=== PATIENT | male | born 1960 | race Caucasian/White ===

== ENCOUNTER 2019-12-13 09:37 | Outpatient (CLI) | payer MEDICARE, OTHER, SELFPAY ==
[2019-12-13 10:18] LABS: Basophils # 0.1 10^3/uL (0.0-0.1); Basophils % 1.1 %; Eosinophils # 0.4 10^3/uL (0.0-0.8); Eosinophils % 3.3 %; Hematocrit 49.7 % (42.0-52.0); Hemoglobin 15.8 g/dL (11.7-16.6); Lymphocytes # 4.6 10^3/uL (0.8-4.8); Lymphocytes % 41.2 %; Mean Corpuscular HGB Conc 31.8 g/dL (30.0-36.0); Mean Corpuscular Hemoglobin 30.7 pg (28.0-34.0); Mean Corpuscular Volume 96.5 fL (80-94); Mean Platelet Volume 10.1 fL (7.4-10.4); Monocytes # 1.3 10^3/uL (0.2-0.9); Monocytes % 11.8 %; Neutrophils # 4.73 10^3/uL (1.8-7.7); Neutrophils % 42.4 %; Nucleated Red Blood Cells % 0 %; Platelet Count 347 10^3/cmm (130-400); Red Blood Count 5.15 10^6/uL (4.1-5.3); Red Cell Distribution Width 15.4 % (12.1-15.1); White Blood Count 11.1 10^3/uL (4.0-10.0)
[2019-12-13 10:46] LABS: Alanine Aminotransferase 45 U/L (0-41); Albumin Level 4.6 g/dL (3.5-5.2); Alkaline Phosphatase 72 IU/L (40-130); Anion Gap 14.7 (5-19); Aspartate Amino Transferase 32 U/L (0-40); Blood Urea Nitrogen 22 mg/dL (6-20); C Reactive Protein 12.8 mg/L (0.0-4.9); Calcium 9.6 mg/dL (8.5-10.5); Carbon Dioxide 28 mmol/L (22-29); Chloride 104 mmol/L (98-107); Glucose 102 mg/dL (65-115); NT Pro B Type Natriuretic Pept 45 pg/mL (0-125); Osmolality Calculated 298 mOsm/kg (285-295); Potassium 4.7 mmol/L (3.5-5.1); Sodium 142 mmol/L (136-145); Total Bilirubin 0.3 mg/dL (0.15-1.2); Total Protein 7.6 g/dL (6.6-8.7)
[2019-12-13 10:53] LABS: Creatine Phosphokinase 326 U/L (39-308)
[2019-12-13 11:08] LABS: Erythrocyte Sedimentation Rate 12 mm/hr (0-10)
[2019-12-14 11:58] LABS: Aldolase 5.9 U/L (< OR = 8.1)
[2019-12-14 12:28] LABS: Cyclic Citrullinated Peptide <16 UNITS
[2019-12-14 13:58] LABS: JO-1 Antibody <1.0 NEG AI (<1.0 NEG); SCL 70 <1.0 NEG AI (<1.0 NEG); SS A Ro Sjogrens Antibody <1.0 NEG AI (<1.0 NEG); SS-B/LA IGG <1.0 NEG AI (<1.0 NEG)
[2019-12-14 14:27] LABS: Anti-Nuclear Antibody Screen NEGATIVE (NEGATIVE)
[2019-12-14 17:27] LABS: Bermuda Class 0; Bermuda Grass (G2) Ige <0.10 kU/L; Cat Dander Class 0/1; Common Ragweed (Short) (W1) Ig 0.11 kU/L; Dog Dander (E5) Ige 0.25 kU/L; Dog Dander Class 0/1; Elm (T8) Ige <0.10 kU/L; Elm Class 0; English Plantain (W9) Ige <0.10 kU/L; English Plantain Class 0; Immunoglobulin E 1011 kU/L (<OR=114); Immunoglobulin E 968 kU/L (<OR=114); Johnson Grass (G10) Ige <0.10 kU/L; Johnson Grass Cl 0; June Grass Class 0; June Grass(Kentucky Blue) (G8) <0.10 kU/L; Lamb'S Quarters (Goose Foot) <0.10 kU/L; Lamb'S Quarters Class 0; Maple (Box Elder) (T1) Ige <0.10 kU/L; Maple Class 0; Meadow Fescue (G4) Ige <0.10 kU/L; Meadow Fescue Class 0; Oak (T7) Ige <0.10 kU/L; Oak Class 0; Orchard Grass (Cocksfoot) (G3) <0.10 kU/L; Perennial Rye Grass (G5) Ige <0.10 kU/L; Perennial Rye Grass Class 0; Ragweeed Class 0/1; Rough Marsh Elder (W16) Ige <0.10 kU/L; Rough Marsh Elder Class 0; Sweet Vernal Class 0/1; Sweet Vernal Grass (G1) Ige 0.15 kU/L; Timothy Grass (G6) Ige <0.10 kU/L; Timothy Grass Class 0
[2019-12-15 18:47] LABS: Alternaria Alternata (M6) Ige <0.10 kU/L; Alternaria Class 0; D. Farinae Class 0/1; Dermatophagoides Class 0/1; Dermatophagoides Farinae (D2) 0.19 kU/L; Dermatophagoides Pteronyssinus 0.22 kU/L; House Dust (Greer) (H1) Ige 0.13 kU/L; House Dust (Hollister- Stier) 0.13 kU/L; House Dust Class 0/1; Mucor Racemosus Class 0/1; Penicillium Class 0; Penicillium Notatum (M1) Ige <0.10 kU/L
[2019-12-16 18:38] LABS: Aspergillus Fumigatus, Igg Ab, 99.3 mg/L (<=102)
[2019-12-18 09:53] LABS: Smooth Muscle Ab Screen NEGATIVE (NEGATIVE)
== END 2019-12-13 09:38 | disposition home or self-care (01) ==
LOC: LAB 09:45
PROVIDERS: Visit Provider Internal Medicine Pulmonary Disease
DX: J84.9 Interstitial pulmonary disease, unspecified (principal); R06.02 Shortness of breath; T78.40XA Allergy, unspecified, initial encounter
CPT/HCPCS: 36415; 80053; 82085; 82550; 82785; 83516; 83880; 85025; 85651; 86003; 86038; 86140; 86235; 86431

== ENCOUNTER → 2019-12-29 09:36 | Outpatient (BNVA) | payer MEDICARE, OTHER, SELFPAY | PROVIDERS: PCP Urology; Visit Provider Internal Medicine Pulmonary Disease | DX: Z11.59 Encounter for screening for other viral diseases (principal); R06.02 Shortness of breath | CPT/HCPCS: 84403; 87635; G0103 ==

== ENCOUNTER 2020-01-03 07:50 | Outpatient (CLI) | payer MEDICARE, OTHER, SELFPAY ==
--- NOTE | 2020-01-03 08:07 | USCV_ITS ---
Miguel Angel George Age: 59 Gender: M : 1960 Exam Date: 01/03/2020 08:46 Ordering Phys: Aquilino Carrasquillo MD Technologist: Jono Whipple Exam Location: [facility] [place] Indication: sob BP: 140 / 83 HR: 70 Rhythm: Sinus Technical Quality: Adequate MEASUREMENTS (Male / Female) Normal Values 2D ECHO LV Diastolic Diameter PLAX 4.3 cm 4.2 - 5.9 / 3.9 - 5.3 cm LV Systolic Diameter PLAX 2.8 cm IVS Diastolic Thickness 1.1 cm 0.6 - 1.0 / 0.6 - 0.9 cm IVS Systolic Thickness 1.4 cm LVPW Diastolic Thickness 1.2 cm 0.6 - 1.0 / 0.6 - 0.9 cm LVPW Systolic Thickness 1.3 cm LVOT Diameter 2.1 cm LV Ejection Fraction 2D Teich 62.5 % LA Diameter 4.5 cm LA Width 3.6 cm LA Height 6.0 cm RA Width 3.2 cm RA Height 4.7 cm M-MODE LV Diastolic Diameter MM 5.6 cm 4.2 - 5.9 / 3.9 - 5.3 cm LV Systolic Diameter MM 3.6 cm LV Ejection Fraction MM Teich 64.8 % IVS Diastolic Thickness MM 0.8 cm 0.6 - 1.0 / 0.6 - 0.9 cm IVS Systolic Thickness MM 1.8 cm LVPW Diastolic Thickness MM 1.3 cm 0.6 - 1.0 / 0.6 - 0.9 cm LVPW Systolic Thickness MM 2.0 cm RV Diastolic Diameter MM 1.5 cm Aortic Annulus Diameter 4.0 cm LA Ao Ratio MM 1.4 MV E Point Septal Separation 0.7 cm DOPPLER AV Peak Velocity 191.0 cm/s LVOT Peak Velocity 109.0 cm/s AV Area Cont Eq vti 1.5 cm squared AV Area Cont Eq pk 1.9 cm squared MV Area PHT 3.7 cm squared Mitral E to A Ratio 1.0 MV E' Velocity 51.0 cm/s Mitral E to MV E' Ratio 12.0 Mitral E to LV E' Lateral Ratio 13.0 Mitral E to LV E' Septal Ratio 11.3 TR Peak Velocity 184.7 cm/s TR Peak Gradient 13.6 mmHg Right Atrial Pressure 3.0 mmHg Pulmonary Artery Systolic Pressu 16.6 mmHg FINDINGS Left Ventricle Normal left ventricular size and systolic function, EF 60% . Mild left ventricular hypertrophy. No regional wall motion abnormalities. Grade I/IV diastolic dysfunction (abnormal relaxation filling pattern), normal to mildly elevated filling pressures. Right Ventricle Normal right ventricular size and systolic function. Right Atrium The right atrium is normal in size. Left Atrium Mildly increased left atrial size. Mitral Valve Thickened mitral valve. Aortic Valve Moderate aortic valve calcification. The leaflets could not be identified well. Bicuspid aortic valve cannot be excluded Tricuspid Valve Trace tricuspid valve regurgitation. Pulmonic Valve Pulmonic valve not well visualized. Pericardium No pericardial effusion. Aorta Normal aortic annulus size. CONCLUSIONS Normal left ventricular size and systolic function, EF 60% . Mild left ventricular hypertrophy. No regional wall motion abnormalities. Grade I/IV diastolic dysfunction (abnormal relaxation filling pattern), normal to mildly elevated filling pressures. Mildly increased left atrial size. Thickened mitral valve. Possible bicuspid aortic valve with a moderate calcification, velocity at the aortic valve is 1.9 m/s Trace tricuspid valve regurgitation. There is no pericardial effusion. There are no intracardiac masses. Compared to the study from 08/06/2017, the velocity across the aortic valve appears to have increased. Dr Leora Camp MD FACC (Electronically Signed) Final Date: 03 January 2020 17:31 S
[2020-01-03 08:58] VITALS: BP 156/97
--- NOTE | 2020-01-03 15:58 | PFTS_ITS ---
Date of Study:01/03/20 Date of Dictation: MECHANICS: Forced vital capacity (FVC) is reduced. Forced expiratory volume in one second (FEV1) is reduced. FEV1/FVC is normal. FLOW VOLUME LOOP: Mild scooping. LUNG VOLUMES: Total lung capacity (TLC) is reduced. Residual volume (RV) is normal. DIFFUSING CAPACITY FOR CARBON MONOXIDE: Normal. INTERPRETATION: The prebronchodilator spirometry is consistent with moderate restriction. The postbronchodilator spirometry is consistent with mild restriction. The patient had a significant postbronchodilator response. The patient most likely has a component of obstructive and restrictive lung disease. The total lung capacity is mildly reduced. The residual volume is normal likely secondary to air trapping. Gas exchange (DLCO) is normal. MTDD
== END 2020-01-03 07:51 | disposition home or self-care (01) ==
LOC: RT 07:52
PROVIDERS: PCP Urology; Visit Provider Internal Medicine Pulmonary Disease
DX: R06.02 Shortness of breath (principal); I05.9 Rheumatic mitral valve disease, unspecified
CPT/HCPCS: 93306; 94060; 94618; 94726; 94729; J7611

== ENCOUNTER 2020-01-04 13:31 | Outpatient (CLI) | payer MEDICARE, OTHER, SELFPAY ==
--- NOTE | 2020-01-04 14:30 | CT_ITS ---
WS: [id number] CT CHEST TECHNIQUE: Noncontrast high-resolution CT of the chest with coronal and sagittal reformatted images. Inspiration, expiration, prone imaging was obtained CLINICAL INFORMATION: Exertional Shortness of breath COMPARISON: CTA chest 7 DLP: 298.[address] scans at [facility] use at least one of these dose optimization techniques: automat ed exposure control; mA and/or kV adjustment per patient size (includes targeted exams where dose is matched to clinical indication); or iterative reconstruction. FINDINGS: Moderate chronic emphysematous changes. No focal consolidation or pleural fluid. Subsegmental atelect asis in the right lower lobe. No evidence of interstitial fibrosis or subpleural honeycombing. Mild s cattered areas of air trapping on the expiratory imaging. Normal inspiratory and prone imaging. Somew hat shallow inspiration. Cardiomegaly. No mediastinal or hilar lymphadenopathy. No axillary lymphadenopathy. Prior splenectomy. Adrenal glan ds are normal. CT/CT chest wo con [id number] IMPRESSION: 1. No evidence of interstitial fibrosis or subpleural honeycombing. 2. Subsegmental atelectasis in the right lower lobe with a few patchy opacitie s similar to 2018. 3. Scattered areas of mild air trapping on the expiratory imaging. Somewhat sh allow inspiration. 4. Normal inspiratory and prone imaging. 5. Prior splenectomy partially visualized.
== END 2020-01-04 13:32 | disposition home or self-care (01) ==
LOC: CT 13:31
PROVIDERS: PCP Urology; Visit Provider Internal Medicine Pulmonary Disease
DX: R06.02 Shortness of breath (principal); J98.11 Atelectasis
CPT/HCPCS: 71250

== ENCOUNTER 2020-01-13 11:12 | Outpatient (CLI) | payer MEDICARE, OTHER, SELFPAY | END 2020-01-13 11:13 | disposition home or self-care (01) | LOC: LAB 11:16 | PROVIDERS: Visit Provider Internal Medicine Pulmonary Disease | DX: J45.909 Unspecified asthma, uncomplicated (principal); J98.4 Other disorders of lung | CPT/HCPCS: 36415 ==

== ENCOUNTER 2020-05-16 10:39 | Outpatient (CLI) | payer MEDICARE, OTHER, SELFPAY ==
--- NOTE | 2020-05-16 10:55 | XRR_ITS ---
PROCEDURE INFORMATION: Exam: XR Right Hip Exam date and time: 05/16/2020 11:04 AM Age: 59 years old Clinical indication: Hip pain; Right hip; Patient HX: Left hip surgery, back surgery; Additional info: Pain in right hip TECHNIQUE: Imaging protocol: XR Right hip. Views: 1 view hip with pelvis when performed. COMPARISON: No relevant prior studies available. FINDINGS: Bones/joints: No fracture or other acute abnormalities are seen. Chronic degenerative joint disease is present with superior joint space narrowing and sclerosis. Soft tissues: Unremarkable. XR/XR hip RT 2-3V wo/w pel* [id number] IMPRESSION: Chronic degenerative disease with sclerosis and joint space narrowing.
== END 2020-05-16 10:40 | disposition home or self-care (01) ==
LOC: RAD 10:49
PROVIDERS: Visit Provider Anesthesiology Pain Medicine
DX: M25.551 Pain in right hip (principal); M16.11 Unilateral primary osteoarthritis, right hip
CPT/HCPCS: 73502

== ENCOUNTER → 2020-10-10 08:14 | Outpatient (BNVA) | payer MEDICARE, OTHER, SELFPAY | PROVIDERS: PCP Family Medicine; Visit Provider Urology | DX: E29.1 Testicular hypofunction (principal); R79.89 Other specified abnormal findings of blood chemistry | CPT/HCPCS: 84403 ==

== ENCOUNTER → 2021-04-12 08:10 | Outpatient (BNVA) | payer MEDICARE, OTHER, SELFPAY | PROVIDERS: PCP Family Medicine; Visit Provider Urology | DX: R79.89 Other specified abnormal findings of blood chemistry (principal); E29.1 Testicular hypofunction | CPT/HCPCS: 81003; 84403; G0103 ==

== ENCOUNTER → 2021-09-28 08:12 | Outpatient (BNVA) | payer MEDICARE, OTHER, SELFPAY | PROVIDERS: PCP Family Medicine; Visit Provider Surgery | DX: K42.9 Umbilical hernia without obstruction or gangrene (principal); R19.7 Diarrhea, unspecified | CPT/HCPCS: 99203 ==

== ENCOUNTER → 2021-12-28 07:56 | Outpatient (BNVA) | payer MEDICARE, OTHER, SELFPAY | PROVIDERS: PCP Family Medicine; Visit Provider Otolaryngology | DX: Z71.1 Person with feared health complaint in whom no diagnosis is made (principal); Z87.891 Personal history of nicotine dependence | CPT/HCPCS: 99202; 99203 ==

== ENCOUNTER 2022-02-21 06:52 | Day surgery (SDC) | payer MEDICARE, OTHER, SELFPAY ==
[2022-02-20 17:39] VITALS: BMI 44.4
[2022-02-21] VITALS (11 sets, daily range): BP systolic 118–186; BP diastolic 67–116; PULSE 77–85; RESP 6–21; TEMP 36.1–36.8; O2SAT 89–97
--- NOTE | 2022-02-21 07:04 | PM.HP ---
Providers/Chief Complaint Primary Care Provider: Brandin Swain DO Chief Complaint: K42.9 History of Present Illness Miguel Angel George is a 61 year old male here for a laparoscopic repair of his umbilical hernia. Medications/Allergies Home Medications Medication Instructions Recorded Confirmed Last Taken Type levothyroxine 100 mcg capsule 100 mcg PO DAILY 11/30/19 02/20/22 02/20/22 History losartan 50 mg tablet 50 mg PO BID 12/13/19 02/20/22 02/20/22 History albuterol sulfate 90 mcg/actuation 1 puff inhalation QID PRN 11/30/20 02/20/22 Unknown Rx aerosol inhaler (ProAir HFA) shortness of breath or wheezing #8.5 grams amlodipine 5 mg tablet 5 mg PO DAILY 09/19/21 02/20/22 02/20/22 History fluticasone propionate 50 1 spray intranasal DAILY PRN 09/19/21 02/20/22 Unknown History mcg/actuation nasal allergies spray,suspension (Flonase Allergy Relief) gabapentin 800 mg tablet 800 mg PO TID 02/20/22 02/20/22 02/20/22 History Allergies Allergy/AdvReac Type Severity Reaction Status Date / Time No Known Allergies Allergy Verified 02/20/22 17:35 PFSH Acute PFSH: Medical History Asthma Chronic back pain Dyspnea GERD (gastroesophageal reflux disease) Hypertension Hypogonadism in male Hypothyroidism Low testosterone in male Renal cyst Umbilical hernia without obstruction and without gangrene Surgical History H/O lumbosacral spine surgery History of arthroplasty of left hip Hx of bilateral hip replacements Hx of colonoscopy Hx of splenectomy Family History Father , AT AGE 68 RENAL FAILURE CAD (coronary artery disease) Mother , AT AGE 72 LUNG CANCER Cancer Other Dementia Diabetes Social History Smoking and tobacco status: former smoker Second hand smoke exposure: Yes Smoking risk assessment/counseling performed?: No Alcohol intake: current Alcohol intake frequency: holidays/special occasions only Alcohol type: beer Desire information about alcohol rehabilitation?: No Counseling given: No Caregiver/support person: No Lives independently: Yes Household members: none Housing: House Marital status: Single service: Yes Current occupational status: disabled Pets and animals: Yes History of recent travel: No Current gender identity: Male Vitals/I&O/Wt Weight last 48 hrs Weight 292 lb Weight 292 lb A&P Assessment and plan (1) Umbilical hernia without obstruction and without gangrene: Plan Laparoscopic repair of umbilical hernia The risks and benefits were explained and documented. Attestations Medical Necessity Statement*: Home Coding Level of Care Code Acute X Ray Equipment Mechanic for Chg Fwd Diagnoses Umbilical hernia without obstruction and without gangrene K42.9
[2022-02-21] MEDS: sodium chloride 0.9% 1,000 ML 30 ML IV (07:36)
--- NOTE | 2022-02-21 07:59 | ANES.PREANE2 ---
Pre-Anesthetic Assessment Height/Weight: Height 1.73 m Weight 132.449 kg Temp Pulse Resp BP Pulse Ox O2 Del Method O2 Flow Rate 98.2 F 77 17 186/116 95 95 02/21/22 07:14 02/21/22 07:14 02/21/22 07:14 02/21/22 07:14 02/21/22 07:14 02/21/22 07:14 02/21/22 07:14 Preop Diagnosis: umbilical hernia Operation Date: 02/21/22 08:40 Proposed Procedures p 86867 lap umbilical hernia repair w/mesh 12050,K42.9(Not Applicable) - Romaine Hinton, DO Familial anesthetic complications: None Was Beta Erinn taken within 24 hours: N/A Was Clonidine taken within 24 hours: N/A Last intake: Intake Last Liquid Date 02/20/22 Last Liquid Time 17:00 Last Solid Date 02/20/22 Last Solid Time 17:00 Social No alcohol and No tobacco Exam alert, oriented x 3, clear to auscultation bilaterally and regular rate & rhythm Airway Mallampati: Class IV Dentition: full Comments: Comments: large neck and tongue with relatively small mouth opening, seen by ENT, noted to have elongated uvula Pulmonary Asthma (? allergic) and Sleep Apnea (patient denies ADIEL) restrictive lung disease CV/HEM Hypertension GI Gastroesophageal Reflux Disease Metabolic Morbid Obesity and Thyroid Disease Anesthetic Plan ASA status: 3 Anesthesia: General Risk of > 500 ml blood loss (7ml/kg in children): No Medications/Allergies Home Medications Medication Instructions Recorded Confirmed Last Taken Type levothyroxine 100 mcg capsule 100 mcg PO DAILY 11/30/19 02/21/22 02/21/22 04:00 History losartan 50 mg tablet 50 mg PO BID 12/13/19 02/21/22 02/20/22 14:00 History albuterol sulfate 90 mcg/actuation 1 puff inhalation QID PRN 11/30/20 02/20/22 Unknown Rx aerosol inhaler (ProAir HFA) shortness of breath or wheezing #8.5 grams amlodipine 5 mg tablet 5 mg PO DAILY 09/19/21 02/21/22 02/21/22 04:00 History fluticasone propionate 50 1 spray intranasal DAILY PRN 09/19/21 02/20/22 Unknown History mcg/actuation nasal allergies spray,suspension (Flonase Allergy Relief) gabapentin 800 mg tablet 800 mg PO TID 02/20/22 02/21/22 02/21/22 04:00 History Allergies Allergy/AdvReac Type Severity Reaction Status Date / Time No Known Allergies Allergy Verified 02/21/22 07:09 Current Medications Generic Name Dose Route Start Last Admin Trade Name Manny PRN Reason Stop Dose Admin Sodium Chloride 1,000 mls @ 30 mls/hr 02/21/22 07:00 02/21/22 07:36 Sodium Chloride 0.9% IV 02/22/22 06:59 30 mls/hr .Q24H DIONNE Administration PFSH Anesthesia Medical History Asthma Chronic back pain Dyspnea GERD (gastroesophageal reflux disease) Hypertension Hypogonadism in male Hypothyroidism Low testosterone in male Renal cyst Umbilical hernia without obstruction and without gangrene Surgical History H/O lumbosacral spine surgery History of arthroplasty of left hip Hx of bilateral hip replacements Hx of colonoscopy Hx of splenectomy Family History Father , AT AGE 68 RENAL FAILURE CAD (coronary artery disease) Mother , AT AGE 72 LUNG CANCER Cancer Other Dementia Diabetes Social History Smoking and tobacco status: former smoker Second hand smoke exposure: Yes Smoking risk assessment/counseling performed?: No Alcohol intake: current Alcohol intake frequency: holidays/special occasions only Alcohol type: beer Desire information about alcohol rehabilitation?: No Counseling given: No Caregiver/support person: No Lives independently: Yes Household members: none Housing: House Marital status: Single service: Yes Current occupational status: disabled Pets and animals: Yes History of recent travel: No Current gender identity: Male Data Anesthesia 02/21/22 07:33 Cardiac Studies: Echocardiogram Ultrasound 01/03/20
[2022-02-21 08:16] LABS: Anion Gap 13.1 (5-19); Blood Urea Nitrogen 14 mg/dL (8-23); Calcium 9.2 mg/dL (8.5-10.5); Carbon Dioxide 27 mmol/L (22-29); Chloride 104 mmol/L (98-107); Glomerular Filtration Rate 61.6 mL/min (90-130); Glucose 99 mg/dL (65-115); Osmolality Calculated 291 mOsm/kg (285-295); Potassium 4.1 mmol/L (3.5-5.1); Sodium 140 mmol/L (136-145)
[2022-02-21] MEDS: ceFAZolin 2,000 MG in sodium chloride 0.9% (plus) 50 ML 100 MG IV (08:40)
--- NOTE | 2022-02-21 09:41 | PM.OP ---
Operative Report Date of procedure: February 21, 2022 Pre-op diagnosis: Preop Diagnosis umbilical hernia Post-op diagnosis: same Procedure done: Laparoscopic repair of umbilical hernia with mesh Implants: 11 cm round mesh Specimens removed/disposition: Hernia sac Surgeon: Dr. Romaine Hinton DO Anesthesia: General Estimated blood loss (mL): 5 Complications: None apparent Brief History: This is a very pleasant 61-year-old gentleman who presented to my office with umbilical hernia. Laparoscopic repair umbilical hernia with mesh was indicated. The risks and benefits were explained and documented. Procedure: Patient was wheeled into the operative room and placed on the OR table in a supine position. Abdomen was inspected prepped and draped in usual sterile fashion. Time-out was performed and all present were in agreement. A 15 blade scalp was used to make a 5 millimeter incision left upper quadrant. A Veress needle was placed into the incision and intra-abdominal insufflation was brought to 15 millimeters of mercury. A 12 millimeter trocar was placed into the left lower quadrant. The energy but device was then used to cut out the hernia sac and lyse adhesions. An 11 cm ventral light mesh was placed into the abdomen and brought up through the umbilicus using an the Zac-Sheila. The mesh was then tacked in place in a double crown fashion. The skeleton of the mesh was removed via the left lower quadrant. The hernia sac was then removed from the abdomen via the left lower quadrant. The left lower quadrant port site was closed with an 0 Vicryl suture in a Zac-Sheila in a [id number]-[id number] fashion. Incisions were closed with 4 O Vicryl in a subcuticular interrupted fashion. Skin glue was applied. A dressing that included cotton balls and a Tegaderm was placed over the umbilicus. Patient tolerated the procedure well.
--- NOTE | 2022-02-21 09:54 | PC.NURSE ---
patient awake. oral airway removed
--- NOTE | 2022-02-21 10:10 | PC.NURSE ---
patient stated his baseline SaO2 is 87-89 due to having a lobectomy.
[2022-02-21] MEDS: HYDROcodone-acetaminophen 10-325 mg Tablet 1 TAB PO (10:57)
--- NOTE | 2022-02-21 16:54 | ANE.PACU2 ---
Inpatient post-anesthesia follow up: Airway intact: Yes Vital signs: Temperature 97 F Pulse Rate 85 Respiratory Rate 17 Blood Pressure 162/88 Pulse Oximetry 91 Oxygen Delivery Me thod Room Air Oxygen Flow Rate 2 Fraction of Inspir ed Oxygen Hydration adequate: Yes Nausea and vomiting: No Pain level: 1 Mental status: Baseline
== END 2022-02-21 11:25 | disposition home or self-care (01) ==
PROVIDERS: Anesthesiology; PCP Family Medicine; Visit Provider Surgery
PROC: 0WQF4ZZ Repair Abdominal Wall, Percutaneous Endoscopic Approach (ICD-10-PCS; CPT 49652; principal; 2022-02-21 08:30)
DX: K42.9 Umbilical hernia without obstruction or gangrene (principal); I10 Essential (primary) hypertension; K21.9 Gastro-esophageal reflux disease without esophagitis; E66.01 Morbid (severe) obesity due to excess calories; Z68.41 Body mass index [BMI] 40.0-44.9, adult; E03.9 Hypothyroidism, unspecified; Z87.891 Personal history of nicotine dependence
CPT/HCPCS: 49652; 80048; 88302; C1781; J0330; J0690; J1100; J2405; J2704; J3010; J3490; J7030

== ENCOUNTER 2022-03-06 06:40 | Outpatient (CLI) | payer MEDICARE, SELFPAY ==
--- NOTE | 2022-03-06 07:05 | CT_ITS ---
WS: [id number] CT CHEST WITH INTRAVENOUS CONTRAST HISTORY: Short of breath, history of Covid. TECHNIQUE: Contiguous 5 mm axial imaging performed on the thorax. Coronal and sagittal reformats are submitted. All CT scans at [facility] use at least one of these dose optimization techniques: automated exposure control; mA and/or kV adjustment per patient size (includes targeted exams where dose is matched to clinical indication); or iterative reconstruction. CONTRAST: Omnipaque 350; 95 mL IV. DLP: 724.30 mGy.cm COMPARISON: 01/04/2020 Lungs and central airway: Lung volumes are decreased due to poor inspiration. Moderate elevation of t he RIGHT hemidiaphragm. Interstitial thickening and crowding of the lung markings is probably due to the poor inspiration. Mild atelectasis at the RIGHT lung base due to the elevated diaphragm. No mass or nodules. Pleura: Normal. No pleural effusion. Heart and pericardium: Normal size heart with no pericardial effusion. Mediastinum and shea: There are a few small, benign appearing mediastinal and hilar lymph nodes. Larg est lymph node is 11 mm RIGHT interlobar. Vessels: Normal size pulmonary artery and thoracic aorta. Chest wall and lower neck: No soft tissue masses. Upper abdomen: High riding liver into the lower RIGHT thorax due to the elevated diaphragm and poor i nspiration. Gallbladder is contracted. No adjacent inflammation. No bile duct dilatation. Small hiata l hernia. Multilobulated, small spleen. May be related to prior infarct or trauma. No history of prio r splenectomy. 2.1 cm LEFT renal cyst. Osseous structures: No destructive process. CT/CT chest w con* [id number] IMPRESSION: 1. Low lung volumes and moderate elevation of the RIGHT hemidiaphragm. Similar to the prior study. 2. No pneumonia. 3. Mild atelectasis RIGHT lung base due to the elevated diaphragm. 4. No adenopathy. Largest lymph node is 11 mm in the RIGHT interlobar distribu tion. 5. Mildly contracted gallbladder probably due to nonfasting state. 6. LEFT renal cyst.
[2022-03-06] MEDS: iohexol 350 mg/mL 500 mL Btl (per mL) IV (07:22)
== END 2022-03-06 06:41 | disposition home or self-care (01) ==
LOC: RAD 06:44
PROVIDERS: PCP Family Medicine; Visit Provider Physician Assistant
DX: R91.8 Other nonspecific abnormal finding of lung field (principal); R06.02 Shortness of breath; Z86.16 Personal history of COVID-19; J98.11 Atelectasis; N28.1 Cyst of kidney, acquired
CPT/HCPCS: 71260; 99024; Q9967

== ENCOUNTER → 2022-04-02 13:47 | Outpatient (BNVA) | payer MEDICARE, SELFPAY | PROVIDERS: PCP Family Medicine; Visit Provider Internal Medicine Pulmonary Disease | DX: R06.02 Shortness of breath (principal); J98.4 Other disorders of lung; G47.33 Obstructive sleep apnea (adult) (pediatric); J45.40 Moderate persistent asthma, uncomplicated; Q23.1 Congenital insufficiency of aortic valve; R60.0 Localized edema; Z91.09 Other allergy status, other than to drugs and biological substances; J98.6 Disorders of diaphragm; J82.83 Eosinophilic asthma | CPT/HCPCS: 99204 ==

== ENCOUNTER → 2022-04-04 09:26 | Outpatient (BNVA) | payer MEDICARE, SELFPAY | PROVIDERS: PCP Family Medicine; Referring Provider Urology; Visit Provider Urology | DX: R79.89 Other specified abnormal findings of blood chemistry (principal) | CPT/HCPCS: 84403 ==

== ENCOUNTER → 2022-04-09 07:55 | Outpatient (BNVA) | payer MEDICARE, SELFPAY | PROVIDERS: PCP Family Medicine; Visit Provider Urology | DX: R79.89 Other specified abnormal findings of blood chemistry (principal); Z12.5 Encounter for screening for malignant neoplasm of prostate; F11.90 Opioid use, unspecified, uncomplicated | CPT/HCPCS: 99213 ==

== ENCOUNTER 2022-04-18 10:48 | Outpatient (CLI) | payer MEDICARE, SELFPAY ==
--- NOTE | 2022-04-18 11:15 | FL_ITS ---
WS: [id number] Exam: FL sniff test [id number] Date/Time of Exam: 04/18/2022 11:40 AM Reason For Exam: Shortness of breath. Sniff test was performed using fluoroscopic visualization. Sniff test shows normal bilateral diaphragmatic motion. There was no sign of the diaphragmatic paraly sis or other significant finding. FL/FL sniff test [id number] IMPRESSION: 1. Normal diaphragmatic motion during inspiration, expiration and sniff test.
== END 2022-04-18 10:49 | disposition home or self-care (01) ==
LOC: RAD 10:55
PROVIDERS: PCP Family Medicine; Visit Provider Internal Medicine Pulmonary Disease
DX: G47.33 Obstructive sleep apnea (adult) (pediatric) (principal); J98.4 Other disorders of lung; R06.02 Shortness of breath
CPT/HCPCS: 76000

== ENCOUNTER → 2022-07-05 09:14 | Outpatient (BNVA) | payer MEDICARE, SELFPAY | PROVIDERS: PCP Family Medicine; Visit Provider Urology | DX: R79.89 Other specified abnormal findings of blood chemistry (principal); Z12.5 Encounter for screening for malignant neoplasm of prostate | CPT/HCPCS: 81003; 84403 ==

== ENCOUNTER → 2022-07-08 14:51 | Outpatient (BNVA) | payer MEDICARE, SELFPAY | PROVIDERS: PCP Family Medicine; Visit Provider Urology | DX: R79.89 Other specified abnormal findings of blood chemistry (principal); Z12.5 Encounter for screening for malignant neoplasm of prostate; E29.1 Testicular hypofunction; F11.90 Opioid use, unspecified, uncomplicated | CPT/HCPCS: 81003; 99213 ==

== ENCOUNTER 2022-09-26 11:57 | Outpatient (CLI) | payer MEDICARE, SELFPAY ==
--- NOTE | 2022-09-26 12:06 | USCV_ITS ---
Miguel Angel George Age: 62 Gender: M : 1960 Exam Date: 09/26/2022 12:32 Ordering Phys: Traci Orellana Technologist: PEDRO [place] [facility] [place]ication: LIGHT HEADEDNESS Risk Factors: Previous Vascular Surgery: Right Brachial BP: / Left Brachial BP: / Right Left Velocity (cm/s) Spectral Plaque Velocity (cm/s) Spectral Plaque Syst/Diast Broadening Syst/Diast Broadening 113.60/29.80 Prox CCA 121.20/ 24.90 99.20/ 20.90 Mid CCA 101.20/ 22.30 92.60/ 23.20 Distal CCA 84.60 / 23.10 68.80/ 21.30 Prox ICA 78.30 / 28.70 79.80/ 19.20 Mid ICA 89.10 / 19.20 66.30/ 22.10 Distal ICA 71.70 / 22.50 101.20 ECA 128.40 0.70 ICA/CCA 0.74 Antegrade Vertebral Antegrade 44.20/ 11.50 cm/s 36.40/ 10.80 cm/s Tri Subclavian Tri 110.5 182.5 0 0 FINDINGS Comparison: none available. No significant elevation of systolic or diastolic velocities. Mixture of calcified and noncalcified plaque in the bifurcations. Antegrade vertebral arteries. CONCLUSIONS Bilateral ICA stenosis less than 50%. Bilateral carotid bifurcation atherosclerotic plaque. Dr. Stephanie Ahmadi DO (Electronically Signed) Final Date: 26 September 2022 13:36 S
== END 2022-09-26 11:58 | disposition home or self-care (01) ==
PROVIDERS: PCP Family Medicine; Visit Provider Physician Assistant
DX: R42 Dizziness and giddiness (principal); I65.23 Occlusion and stenosis of bilateral carotid arteries
CPT/HCPCS: 93880

== ENCOUNTER 2022-12-19 11:53 | Emergency (ER) | payer MEDICARE, SELFPAY ==
[2022-12-19 11:57] VITALS: BP 165/93; PULSE 86; RESP 16; TEMP 36.7; O2SAT 94; BMI 44.6
--- NOTE | 2022-12-19 12:09 | W.ED.SKABFB ---
HPI - Skin/Abscess/Foreign Bdy General: Chief complaint: Skin/Abscess/Foreign Body Stated complaint: Orellana sent for skin infection Time Seen by Provider: 12/19/22 11:59 Source: patient Mode of arrival: ambulatory History of Present Illness: 62-year-old male presents emergency room sent by midlevel seen him in the clinic he was seen earlier this week and had what was thought to be a bug bite on his right flank and started on doxycycline its worsened since then. No fever. No vomiting no diarrhea. Onset (ago): minute(s) Severity: moderate Relieving factors: none Exacerbating factors: none Context: none Associated symptoms: Deny no associated symptoms, arthralgias, chills, cough, fever(s), itching, myalgias, nausea, rigidity, short of breath, vomiting or other Review of Systems Const: Denies: fever(s) or chills Card: Denies: chest pain Resp: Denies: dyspnea GI: Denies: nausea or vomiting : Denies: dysuria, urinary frequency or urinary urgency Musc: Denies: neck pain or back pain Skin/Breast: Denies: rash PFSH ED PFSH: Medical History Asthma Chronic back pain Dyspnea GERD (gastroesophageal reflux disease) History of umbilical hernia Hypertension Hypogonadism in male Hypothyroidism Low testosterone in male Renal cyst Umbilical hernia without obstruction and without gangrene Surgical History H/O lumbosacral spine surgery History of arthroplasty of left hip Hx of bilateral hip replacements Hx of colonoscopy Hx of splenectomy Family History Father , AT AGE 68 RENAL FAILURE CAD (coronary artery disease) Mother , AT AGE 72 LUNG CANCER Cancer Other Dementia Diabetes Social History Smoking and tobacco/nicotine status: never used tobacco/nicotine Second hand smoke exposure: Yes Alcohol intake: current Alcohol intake frequency: holidays/special occasions only Alcohol type: beer Substance/Drug Use: never Caregiver/support person: No Lives independently: Yes Household members: none Housing: House Marital status: Single service: Yes Current occupational status: disabled Pets and animals: Yes Do you think of yourself as: Straight/Heterosexual Current gender identity: Male Physical Exam Const: GENERAL APPEARANCE: cooperative and comfortable ORIENTATION/CONSCIOUSNESS: Yes awake, Yes oriented to person, Yes oriented to place and Yes oriented to time HENMT: COMMON NORMALS: normocephalic, atraumatic and hearing grossly normal bilaterally HEAD & SCALP: normocephalic and atraumatic Resp: COMMON NORMALS: normal respiratory effort, No retractions, No use of accessory muscles and clear to auscultation bilaterally AUSCULTATION: clear to auscultation bilaterally Cardio: COMMON NORMALS: regular rate, regular rhythm and No murmurs present (Cardio) RATE: regular rate RHYTHM: regular rhythm GI: COMMON NORMALS: Soft to palpation and No hepatosplenomegaly present AUSCULTATION: Yes normoactive bowel sounds PALPATION: Yes Soft to palpation, No Tenderness to palpation present (GI), No Guarding due to palpation present (GI) and Yes No hepatosplenomegaly present Extremity: COMMON NORMALS: normal to inspection, capillary refill normal, no clubbing, cyanosis or edema, no calf tenderness and no pedal edema Neuro: SENSORIUM/ORIENTATION: Yes oriented to person, Yes oriented to place and Yes oriented to time Skin: NARRATIVE SKIN EXAM: Redness erythema with central open wounds 2 small parallel areas of both knees you have elected Hyphed live no active bleeding skin is thickened and inflamed there is no subcutaneous fluid collections. No drainage with palpation around the open wounds. Course Vital Signs: Vital signs: Vital Signs Temperature 98.0 F 12/19/22 11:57 Pulse Rate 86 12/19/22 11:57 Respiratory Rate 16 12/19/22 11:57 Blood Pressure 165/93 12/19/22 11:57 Pulse Oximetry 94 12/19/22 11:57 Oxygen Delivery Me thod Room Air 12/19/22 11:57 MDM - Skin/Abscess/Foreign Bdy Medicial Decision Making Cellulitis failing outpatient antibiotics. Will admit with IV vancomycin discussed with hospitalist orders written. Medical Records I reviewed the patient's medical records. Lab Data I reviewed the patient's lab results. 12/19/22 13:00 12/19/22 13:00 Laboratory Results WBC 20.80 10^3/uL (3.29-11.43) H 12/19/22 13:00 RBC 5.15 10^6/uL (3.85-5.65) 12/19/22 13:00 Hgb 16.10 g/dL (11.27-16.99) 12/19/22 13:00 Hct 48.2 % (37-53) 12/19/22 13:00 MCV 93.6 fl (82-101) 12/19/22 13:00 MCH 31.3 pg (27-33) 12/19/22 13:00 MCHC 33.4 g/dL (30-55) 12/19/22 13:00 RDW 14.5 % (12.1-15.1) 12/19/22 13:00 Plt Count 321 10^3/cmm (157-399) 12/19/22 13:00 MPV 10.1 fL (7.4-10.4) 12/19/22 13:00 Neut % (Auto) 71.2 % 12/19/22 13:00 Lymph % (Auto) 12.4 % 12/19/22 13:00 [place] % (Auto) 10.4 % 12/19/22 13:00 Eos % (Auto) 5.1 % 12/19/22 13:00 Baso % (Auto) 0.3 % 12/19/22 13:00 Neut # (Auto) 14.82 10^3/uL (1.8-7.7) H 12/19/22 13:00 Lymph # (Auto) 2.6 10^3/uL (0.8-4.8) 12/19/22 13:00 [place] # (Auto) 2.2 10^3/uL (0.2-0.9) H 12/19/22 13:00 Eos # (Auto) 1.1 10^3/uL (0.0-0.8) H 12/19/22 13:00 Baso # (Auto) 0.1 10^3/uL (0.0-0.1) 12/19/22 13:00 Nucleated RBC % (auto) 0.1 % 12/19/22 13:00 Nucleated RBCs # 0.0 /100WBC 12/19/22 13:00 Sodium 134 mmol/L (136-145) L 12/19/22 13:00 Potassium 3.3 mmol/L (3.5-5.1) L 12/19/22 13:00 Chloride 94 mmol/L (98-107) L 12/19/22 13:00 Carbon Dioxide 30 mmol/L (22-29) H 12/19/22 13:00 Anion Gap 13.3 (5-19) 12/19/22 13:00 BUN 17 mg/dL (8-23) 12/19/22 13:00 Creatinine 1.3 mg/dL (0.7-1.2) H 12/19/22 13:00 GFR Calculation 55.9 mL/min (90-130) L 12/19/22 13:00 Glucose 107 mg/dL (65-115) 12/19/22 13:00 Calculated Osmolality 280 mOsm/kg (285-295) L 12/19/22 13:00 Calcium 9.6 mg/dL (8.5-10.5) 12/19/22 13:00 Total Bilirubin 1.1 mg/dL (0.15-1.2) 12/19/22 13:00 AST 35 U/L (0-40) 12/19/22 13:00 ALT 53 U/L (0-41) H 12/19/22 13:00 Alkaline Phosphatase 105 U/L (40-130) 12/19/22 13:00 Total Protein 7.9 g/dL (6.6-8.7) 12/19/22 13:00 Albumin 4.3 g/dL (3.5-5.2) 12/19/22 13:00 Globulin 3.6 g/dL (1.3-4.6) 12/19/22 13:00 All radiology interpretation(s) finalized by discharge Discharge Plan Discharge Patient Disposition: Placed in Observation Clinical Impression: Cellulitis Condition: Stable Prescriptions: No Action levothyroxine 100 mcg capsule 100 mcg PO DAILY losartan 50 mg tablet 50 mg PO BID montelukast 10 mg tablet 10 mg PO DAILY amlodipine 5 mg tablet 5 mg PO DAILY fluticasone propionate [Flonase Allergy Relief] 50 mcg/actuation spray,suspension 1 spray intranasal DAILY PRN (Reason: allergies) Rx Instructions: administer into each nostril testosterone cypionate [Depo-Testosterone] 200 mg/mL oil 200 mg IM .Every other week Qty: 10 5RF gabapentin 800 mg Tablet 800 mg PO TID docusate sodium [DOK] 100 mg capsule 100 mg PO BID Qty: 20 0RF atorvastatin 10 mg tablet 10 mg PO QPM doxycycline hyclate 100 mg tablet 100 mg PO BID hydrochlorothiazide 12.5 mg tablet 12.5 mg PO DAILY Referrals: Brandin Swain DO [Primary Care Provider] - Coding Level of Care Code ED [employer] for Alexi Teixeira
--- NOTE | 2022-12-19 12:26 | US_ITS ---
WS: [id number] ULTRASOUND SOFT TISSUES RIGHT lateral abdominal wall. HISTORY: r side abd wall abscess COMPARISON: None available. TECHNIQUE: 2-D and color Doppler imaging is submitted. Ultrasound performed over the area of clinical concern. There is no underlying abscess or fluid colle ction. There is a very small amount of edema within the soft tissue. IMPRESSION: Mild soft tissue edema but no abscess.
[2022-12-19 13:20] LABS: Basophils # 0.1 10^3/uL (0.0-0.1); Basophils % 0.3 %; Eosinophils # 1.1 10^3/uL (0.0-0.8); Eosinophils % 5.1 %; Hematocrit 48.2 % (37-53); Lymphocytes # 2.6 10^3/uL (0.8-4.8); Lymphocytes % 12.4 %; Mean Corpuscular HGB Conc 33.4 g/dL (30-55); Mean Corpuscular Hemoglobin 31.3 pg (27-33); Mean Corpuscular Volume 93.6 fl (82-101); Mean Platelet Volume 10.1 fL (7.4-10.4); Monocytes # 2.2 10^3/uL (0.2-0.9); Monocytes % 10.4 %; Neutrophils # 14.82 10^3/uL (1.8-7.7); Neutrophils % 71.2 %; Nucleated Red Blood Cells % 0.1 %; Platelet Count 321 10^3/cmm (157-399); Red Blood Count 5.15 10^6/uL (3.85-5.65); Red Cell Distribution Width 14.5 % (12.1-15.1)
[2022-12-19 13:47] LABS: Alanine Aminotransferase 53 U/L (0-41); Albumin Level 4.3 g/dL (3.5-5.2); Alkaline Phosphatase 105 U/L (40-130); Anion Gap 13.3 (5-19); Aspartate Amino Transferase 35 U/L (0-40); Blood Urea Nitrogen 17 mg/dL (8-23); Calcium 9.6 mg/dL (8.5-10.5); Carbon Dioxide 30 mmol/L (22-29); Chloride 94 mmol/L (98-107); Globulin 3.6 g/dL (1.3-4.6); Glomerular Filtration Rate 55.9 mL/min (90-130); Glucose 107 mg/dL (65-115); Osmolality Calculated 280 mOsm/kg (285-295); Potassium 3.3 mmol/L (3.5-5.1); Sodium 134 mmol/L (136-145); Total Bilirubin 1.1 mg/dL (0.15-1.2); Total Protein 7.9 g/dL (6.6-8.7)
[2022-12-19] MEDS: vancomycin 1,000 MG in sodium chloride 0.9% 250 ML 250 MG IV (14:17)
--- NOTE | 2022-12-19 15:49 | P.HP_ITS ---
Providers/Chief Complaint Primary Care Provider: Brandin Swain DO Chief Complaint: Orellana sent for skin infection History of Present Illness Miguel Angel George is a 62 year old male with a past medical history of hypertension, history of asplenia, who presents [facility] as he developed right roxy area of erythema, swelling, with drainage along right flank. He tells me that his symptoms started on Friday, area of erythema, swelling, and area actively draining, he was placed on antibiotics by his primary care provider, doxycycline, and followed up the next day but continued to have worsening erythema, swelling, drainage so was told to come to the emergency room. No fevers, chills, he does report asplenia, denies any animal bites, no cat bites, no dog bites, he is not sure if maybe a spider bit him, a few days ago but it is possible, Medications/Allergies Home Medications Medication Instructions Recorded Confirmed Last Taken Type levothyroxine 100 mcg capsule 100 mcg PO DAILY 11/30/19 12/19/22 12/19/22 History losartan 50 mg tablet 50 mg PO BID 12/13/19 12/19/22 12/19/22 History amlodipine 5 mg tablet 5 mg PO DAILY 09/19/21 12/19/22 12/19/22 History fluticasone propionate 50 1 spray intranasal DAILY PRN 09/19/21 12/19/22 Unknown History mcg/actuation nasal allergies spray,suspension (Flonase Allergy Relief) gabapentin 800 mg tablet 800 mg PO TID 02/20/22 12/19/22 12/19/22 History docusate sodium 100 mg capsule 100 mg PO BID #20 caps 02/21/22 12/19/22 12/19/22 Rx (DOK) montelukast 10 mg tablet 10 mg PO DAILY 04/09/22 12/19/22 12/19/22 History testosterone cypionate 200 mg/mL 200 mg IM .Every other week #10 mL 07/08/22 12/19/22 Unknown Rx intramuscular oil (Depo-Testosterone) atorvastatin 10 mg tablet 10 mg PO QPM 12/19/22 12/19/22 12/18/22 History doxycycline hyclate 100 mg tablet 100 mg PO BID 12/19/22 12/19/22 12/19/22 History hydrochlorothiazide 12.5 mg tablet 12.5 mg PO DAILY 12/19/22 12/19/22 12/19/22 History linezolid 600 mg tablet 600 mg PO BID 10 days #20 tabs 12/19/22 Unknown Rx Allergies Allergy/AdvReac Type Severity Reaction Status Date / Time No Known Allergies Allergy Verified 12/19/22 13:38 PFSH Acute PFSH: Medical History Asthma Chronic back pain Dyspnea GERD (gastroesophageal reflux disease) History of umbilical hernia Hypertension Hypogonadism in male Hypothyroidism Low testosterone in male Renal cyst Umbilical hernia without obstruction and without gangrene Surgical History H/O lumbosacral spine surgery History of arthroplasty of left hip Hx of bilateral hip replacements Hx of colonoscopy Hx of splenectomy Family History Father , AT AGE 68 RENAL FAILURE CAD (coronary artery disease) Mother , AT AGE 72 LUNG CANCER Cancer Other Dementia Diabetes Social History Smoking and tobacco/nicotine status: never used tobacco/nicotine Second hand smoke exposure: Yes Alcohol intake: current Alcohol intake frequency: holidays/special occasions only Alcohol type: beer Substance/Drug Use: never Caregiver/support person: No Lives independently: Yes Household members: none Housing: House Marital status: Single service: Yes Current occupational status: disabled Pets and animals: Yes Do you think of yourself as: Straight/Heterosexual Current gender identity: Male Vitals/I&O/Wt Last Vital Signs Temp 98.0 F 12/19/22 11:57 Pulse 86 12/19/22 11:57 Resp 16 12/19/22 11:57 BP 165/93 12/19/22 11:57 Pulse Ox 94 12/19/22 11:57 O2 Del Method Room Air 12/19/22 11:57 Weight last 48 hrs Weight 133.356 kg Physical Exam Const: COMMON NORMALS: no acute distress and patient oriented x3 Resp: COMMON NORMALS: normal respiratory effort, No retractions, No use of accessory muscles and clear to auscultation bilaterally AUSCULTATION: clear to auscultation bilaterally Cardio: COMMON NORMALS: no JVD, regular rate, regular rhythm, S1 normal heart sound present and S2 normal heart sound present RATE: regular rate RHYTHM: regular rhythm HEART SOUNDS: S1 normal heart sound present and S2 normal heart sound present GI: COMMON NORMALS: Normal to inspection, nondistended, normoactive bowel sounds present, Soft to palpation and No hepatosplenomegaly present Extremity: COMMON NORMALS: no pedal edema Neuro: COMMON NORMALS: patient oriented x3 Psych: COMMON NORMALS: mental status grossly normal Data 12/19/22 13:00 12/19/22 13:00 Micro: Microbiology 12/19/22 13:13 Blood Culture - Preliminary Blood SPECIMEN COLLECTED 12/19/22 13:00 Blood Culture - Preliminary Blood SPECIMEN COLLECTED A&P Assessment and plan (1) Cellulitis: Plan Cellulitis -With an open area of drainage, possible spider bite, possibly from spider bite/brown recluse -Right flank, measuring 5 x 5 cm, irregular borders -With an open area, that is draining pustular drainage, no abscess pocket palpated -He is asplenic -Leukocytosis -Recommended inpatient admission however patient declined -he understands morbidity and mortality, voiced understanding, all questions answered, declined admission for now ? Advised that if he has any fevers, chills to go to emergency room as this is needed Sepsis ? I also discussed with him taking antibiotic therapy as prescribed ? Keep area clean and dry, he can place topical bacitracin, but do not put harsh chemicals over the area ? If area of cellulitis starts to expand beyond marked borders he is please drainage, or palpable abscess come back to the emergency room Attestations Medical Necessity Statement*: Patient requires hospitalization, however left AGAINST MEDICAL ADVICE Diagnoses Cellulitis L03.90
== END 2022-12-19 16:18 | disposition left against medical advice (07) ==
PROVIDERS: Emergency Provider Family Medicine; PCP Family Medicine
DX: L03.116 Cellulitis of left lower limb (principal); L03.115 Cellulitis of right lower limb; I10 Essential (primary) hypertension
CPT/HCPCS: 36415; 76882; 80053; 85025; 87040; 99284; J3370; J7050

== ENCOUNTER → 2022-12-26 08:45 | Outpatient (BNVA) | payer MEDICARE, SELFPAY | PROVIDERS: PCP Family Medicine; Visit Provider Nurse Practitioner Family | DX: I96 Gangrene, not elsewhere classified (principal); L98.492 Non-pressure chronic ulcer of skin of other sites with fat layer exposed | CPT/HCPCS: 11042; 99213 ==

== ENCOUNTER → 2023-01-02 08:46 | Outpatient (BNVA) | payer MEDICARE, SELFPAY | PROVIDERS: PCP Family Medicine; Visit Provider Nurse Practitioner Family | DX: I96 Gangrene, not elsewhere classified (principal); L98.492 Non-pressure chronic ulcer of skin of other sites with fat layer exposed | CPT/HCPCS: 11042; A6210; A6212 ==

== ENCOUNTER → 2023-01-09 09:38 | Outpatient (BNVA) | payer MEDICARE, SELFPAY | PROVIDERS: PCP Family Medicine; Visit Provider Nurse Practitioner Family | DX: I96 Gangrene, not elsewhere classified (principal); L98.492 Non-pressure chronic ulcer of skin of other sites with fat layer exposed | CPT/HCPCS: 97597; A6210; A6219 ==

== ENCOUNTER → 2023-01-23 09:33 | Outpatient (BNVA) | payer MEDICARE, SELFPAY | PROVIDERS: PCP Family Medicine; Visit Provider Nurse Practitioner Family | DX: Z09 Encounter for follow-up examination after completed treatment for conditions other than malignant neoplasm (principal) | CPT/HCPCS: 99212; A6219 ==

== ENCOUNTER → 2023-03-21 09:47 | Outpatient (BNVA) | payer MEDICARE, SELFPAY | PROVIDERS: PCP Family Medicine; Referring Provider Physician Assistant; Visit Provider Surgery | DX: Z12.11 Encounter for screening for malignant neoplasm of colon (principal) | CPT/HCPCS: 99024; 99203 ==

== ENCOUNTER 2023-05-14 13:55 | Outpatient (CLI) | payer MEDICARE, SELFPAY ==
--- NOTE | 2023-05-14 14:05 | XR_ITS ---
WS: [id number] SCREENING DEXA SCAN [employer] CLINICAL INFORMATION: OTH DISRD OF BONE DENSITY STRUCTURE COMPARISON: None. FINDINGS: Left forearm bone mineral density measures 0.894. This corresponds to a T score of -1.0 and Z score o f -0.5. Right forearm bone mineral density measures 1.02. This corresponds to a T score 0.4 of and Z score of 0.9. IMPRESSION: Osteopenia LEFT forearm. Normal bone mineralization RIGHT forearm.
== END 2023-05-14 13:56 | disposition home or self-care (01) ==
PROVIDERS: PCP Family Medicine; Visit Provider Physician Assistant
DX: M85.88 Other specified disorders of bone density and structure, other site (principal)
CPT/HCPCS: 77080

== ENCOUNTER 2023-06-19 06:18 | Day surgery (SDC) | payer MEDICARE, SELFPAY ==
--- NOTE | 2023-06-19 05:45 | W.PM.OPSFHP ---
Same Day Surgery H&P Indication for Procedure/HPI DATE OF PROCEDURE: June 19, 2023 CHIEF COMPLAINT/INDICATIONFOR SURGICAL PROCEDURE: encounter for screening colonoscopy PREOP DIAGNOSIS: encounter for screening colonoscopy PLANNED PROCEDURE: Operation Date: 06/19/23 07:40 Proposed Procedures p 00194 colon G0121 screen colon A risk Z12.11(Not Applicable) - Toy Gayle MD Medications/Allergies* Home Medications Medication Instructions Recorded Confirmed Type levothyroxine 100 mcg capsule 100 mcg PO DAILY 11/30/19 06/17/23 History losartan 50 mg tablet 50 mg PO BID 12/13/19 06/17/23 History amlodipine 5 mg tablet 5 mg PO DAILY 09/19/21 06/17/23 History fluticasone propionate 50 1 spray intranasal DAILY PRN 09/19/21 06/17/23 History mcg/actuation nasal allergies spray,suspension (Flonase Allergy Relief) gabapentin 800 mg tablet 400 mg PO QID 02/20/22 06/17/23 History atorvastatin 10 mg tablet 10 mg PO QPM 12/19/22 06/17/23 History hydrochlorothiazide 12.5 mg tablet 25 mg PO DAILY 12/19/22 06/17/23 History ascorbic acid (vitamin C) 1,000 mg 1 g PO BID 03/21/23 06/17/23 History capsule magnesium 200 mg tablet 200 mg PO DAILY 03/21/23 06/17/23 History mecobalamin (vitamin B12) 2,500 2,500 mcg PO DAILY 03/21/23 06/17/23 History mcg chewable tablet vitamin K2 + D 1 tab PO DAILY 03/21/23 06/17/23 History zinc acetate 50 mg (zinc) capsule 50 mg PO DAILY 03/21/23 06/17/23 History (Galzin) hydrocodone 10 mg-acetaminophen 1 tab PO TID 06/17/23 06/17/23 History 325 mg tablet Allergies/Adverse Reactions Allergy/AdvReac Type Severity Reaction Status Date / Time No Known Allergies Allergy Verified 06/17/23 09:09 Pertinent History/Comorbid Conditions* Medical History (Updated 12/27/22 @ 00:01 by CARMEN Corona) History of umbilical hernia Umbilical hernia without obstruction and without gangrene Dyspnea Low testosterone in male Asthma Hypothyroidism Hypertension GERD (gastroesophageal reflux disease) Chronic back pain Renal cyst Hypogonadism in male Surgical History (Updated 03/06/22 @ 13:46 by Romaine Hinton, DO) Hx of bilateral hip replacements Hx of colonoscopy Hx of splenectomy History of arthroplasty of left hip H/O lumbosacral spine surgery Family History (Updated 12/17/19 @ 13:17 by Georgie Guadarrama, SWETHA) Father, AT AGE 68 RENAL FAILURE Mother, AT AGE 72 LUNG CANCER Diabetes CAD (coronary artery disease) Father Dementia Cancer Mother Social History Smoking and tobacco/nicotine status: never used tobacco/nicotine Second hand smoke exposure: Yes Alcohol intake: current Alcohol intake frequency: holidays/special occasions only Alcohol type: beer Substance/Drug Use: never Caregiver/support person: No Lives independently: Yes Household members: none Housing: House Marital status: Single service: Yes Current occupational status: disabled Pets and animals: Yes Do you think of yourself as: Straight/Heterosexual Current gender identity: Male Pertinent Exam Findings alert, oriented x 3 and clear to auscultation bilaterally Recommendations Surgery/Procedure today Coding Level of Care Code Acute Code for Chg Fwd
[2023-06-19 06:37] VITALS: BP 134/83; PULSE 85; RESP 18; TEMP 36.5; O2SAT 92; BMI 47.0
[2023-06-19] MEDS: sodium chloride 0.9% 1,000 ML 30 ML IV (06:46)
--- NOTE | 2023-06-19 07:29 | ANES.PREANE2 ---
Pre-Anesthetic Assessment Height/Weight: Height 1.7 m Weight 136.078 kg Temp Pulse Resp BP Pulse Ox O2 Del Method 97.7 F 85 18 134/83 92 Room Air 06/19/23 06:37 06/19/23 06:37 06/19/23 06:37 06/19/23 06:37 06/19/23 06:37 06/19/23 06:37 Preop Diagnosis: encounter for screening colonoscopy Operation Date: 06/19/23 07:40 Proposed Procedures p 32470 colon G0121 screen colon A risk Z12.11(Not Applicable) - Toy Gayle MD Familial anesthetic complications: None Was Beta Erinn taken within 24 hours: N/A Was Clonidine taken within 24 hours: N/A Last intake: Intake Last Liquid Date 06/18/23 Last Liquid Time 20:00 Last Solid Date 06/17/23 Last Solid Time 16:00 Social No alcohol and No tobacco Exam alert, oriented x 3 and clear to auscultation bilaterally Airway Mallampati: Class III Dentition: chipped and full History/ROS No significant history except as noted Pulmonary Chronic Obstructive Pulmonary Disease and Sleep Apnea (does not wear CPAP) CV/HEM Hypertension None reported Hepatic None reported GI None reported Metabolic Morbid Obesity and Thyroid Disease [facility] None reported Neuropsych None reported Anesthetic Plan ASA status: 3 Anesthesia: Anesthesia Evaluation and MAC Risk of > 500 ml blood loss (7ml/kg in children): No Medications/Allergies Home Medications Medication Instructions Recorded Confirmed Last Taken Type levothyroxine 100 mcg capsule 100 mcg PO DAILY 11/30/19 06/17/23 06/19/23 History losartan 50 mg tablet 50 mg PO BID 12/13/19 06/17/23 06/18/23 History amlodipine 5 mg tablet 5 mg PO DAILY 09/19/21 06/17/23 06/19/23 History fluticasone propionate 50 1 spray intranasal DAILY PRN 09/19/21 06/17/23 Unknown History mcg/actuation nasal allergies spray,suspension (Flonase Allergy Relief) gabapentin 800 mg tablet 400 mg PO QID 02/20/22 06/17/23 06/19/23 History testosterone cypionate 200 mg/mL 200 mg IM .Every other week #10 mL 07/08/22 06/17/23 05/27/23 Rx intramuscular oil (Depo-Testosterone) atorvastatin 10 mg tablet 10 mg PO QPM 12/19/22 06/17/23 06/19/23 History hydrochlorothiazide 12.5 mg tablet 25 mg PO DAILY 12/19/22 06/17/23 06/18/23 History ascorbic acid (vitamin C) 1,000 mg 1 g PO BID 03/21/23 06/17/23 06/19/23 History capsule magnesium 200 mg tablet 200 mg PO DAILY 03/21/23 06/17/23 06/19/23 History mecobalamin (vitamin B12) 2,500 2,500 mcg PO DAILY 03/21/23 06/17/23 06/19/23 History mcg chewable tablet vitamin K2 + D 1 tab PO DAILY 03/21/23 06/17/23 06/19/23 History zinc acetate 50 mg (zinc) capsule 50 mg PO DAILY 03/21/23 06/17/23 06/19/23 History (Galzin) hydrocodone 10 mg-acetaminophen 1 tab PO TID 06/17/23 06/17/23 06/19/23 History 325 mg tablet Allergies Allergy/AdvReac Type Severity Reaction Status Date / Time No Known Allergies Allergy Verified 06/17/23 09:09 Current Medications Generic Name Dose Route Start Last Admin Trade Name Freq PRN Reason Stop Dose Admin Sodium Chloride 1,000 mls @ 30 mls/hr 06/19/23 06:30 06/19/23 06:46 Sodium Chloride 0.9% IV 06/20/23 06:29 30 mls/hr .Q24H DIONNE Administration PFSH Anesthesia Medical History Asthma Chronic back pain Dyspnea GERD (gastroesophageal reflux disease) History of umbilical hernia Hypertension Hypogonadism in male Hypothyroidism Low testosterone in male Renal cyst Umbilical hernia without obstruction and without gangrene Surgical History H/O lumbosacral spine surgery History of arthroplasty of left hip Hx of bilateral hip replacements Hx of colonoscopy Hx of splenectomy Family History Father , AT AGE 68 RENAL FAILURE CAD (coronary artery disease) Mother , AT AGE 72 LUNG CANCER Cancer Other Dementia Diabetes Social History Smoking and tobacco/nicotine status: never used tobacco/nicotine Second hand smoke exposure: Yes Alcohol intake: current Alcohol intake frequency: holidays/special occasions only Alcohol type: beer Substance/Drug Use: never Caregiver/support person: No Lives independently: Yes Household members: none Housing: House Marital status: Single service: Yes Current occupational status: disabled Pets and animals: Yes Do you think of yourself as: Straight/Heterosexual Current gender identity: Male Data Anesthesia Cardiac Studies: Echocardiogram Ultrasound 01/03/20
[2023-06-19 08:07] VITALS: BP 93/60; PULSE 72; RESP 12; TEMP 36.1; O2SAT 93
[2023-06-19 08:20] VITALS: BP 107/73; PULSE 72; RESP 16; O2SAT 93
--- NOTE | 2023-06-19 08:40 | ANE.PACU2 ---
Inpatient post-anesthesia follow up: Airway intact: Yes Vital signs: Temperature 97 F Pulse Rate 72 Respiratory Rate 16 Blood Pressure 107/73 Pulse Oximetry 93 Oxygen Delivery Me thod Room Air Oxygen Flow Rate 2 Fraction of Inspir ed Oxygen Hydration adequate: Yes Nausea and vomiting: No Pain level: 1 Mental status: Baseline
== END 2023-06-19 08:40 | disposition home or self-care (01) ==
PROVIDERS: PCP Family Medicine; Visit Provider Surgery
PROC: 0DJD8ZZ Inspection of Lower Intestinal Tract, Via Natural or Artificial Opening Endoscopic (ICD-10-PCS; CPT 45378; principal; 2023-06-19 07:40)
DX: Z12.11 Encounter for screening for malignant neoplasm of colon (principal); E03.9 Hypothyroidism, unspecified; I10 Essential (primary) hypertension; K21.9 Gastro-esophageal reflux disease without esophagitis; J44.9 Chronic obstructive pulmonary disease, unspecified; G47.30 Sleep apnea, unspecified; E66.01 Morbid (severe) obesity due to excess calories; Z68.42 Body mass index [BMI] 45.0-49.9, adult
CPT/HCPCS: G0121; J2704; J7030

== ENCOUNTER 2023-06-25 09:21 | Outpatient (CLI) | payer MEDICARE, SELFPAY ==
--- NOTE | 2023-06-25 09:34 | IR_ITS ---
WS: [id number] LUMBAR MYELOGRAM HISTORY: VERTEBROGENIC LOW BACK PAIN COMPARISON: 01/21/2017 FLUOROSCOPY TIME: 1min [id number] # of spot films: 9 Procedure, risks and complications were explained to the patient. Risks including bleeding, infection , headaches, allergic reaction and seizures. Consent has been obtained. With the patient in prone position the skin over the lumbar region is cleansed with ChloraPrep and an esthetized with lidocaine. 22-gauge spinal needle is inserted into the thecal sac at the appropriate level determined by fluoroscopy. Omnipaque 240; 10 ml is injected slowly under fluoroscopy with no co mplications. Needle bevel is perpendicular to the longitudinal fibers of the dura. Stylet is reinsert ed prior to removal of the needle. Patient tolerated the procedure well. Patient will proceed to CT f or further evaluation. Status post lumbosacral fusion from L4-S1. Hardware appears intact. Laminectomy defects at L4-5 and L 5-S1. Focal area of stenosis at the L3-4 level. This will be better evaluated by CT to follow. Otherw ise the nerve roots appear to be exiting without difficulty. Mild anterolisthesis of L3 by 2 to 3 mm. IR/IR myelogram sp lumbar [id number] IMPRESSION: 1. Uncomplicated lumbar myelogram. 2. Prior posterior lumbar fusion from L4-S1 with laminectomy defects. 3. High-grade stenosis is suspected at the L3-[address] myelogram rep ort to follow.
--- NOTE | 2023-06-25 09:34 | CT_ITS ---
WS: [id number] CT MYELOGRAM LUMBAR SPINE HISTORY: VERTEBROGENIC LOW BACK PAIN TECHNIQUE: Contiguous 2.5 mm axial imaging performed from T12 through the mid sacral level. Bone and soft tissue windows reviewed. Sagittal and coronal reformats are submitted and reviewed. DLP: 1687.[address] scans at [facility] use at least one of these dose optimization techniques: automated e xposure control; mA and/or kV adjustment per patient size (includes targeted exams where dose is matc hed to clinical indication); or iterative reconstruction. COMPARISON: 01/22/2018 Good intrathecal injection of contrast. Prior fusion hardware extends from L4-S1. Interbody spacers a t L4-5 and L5-S1. No hardware fracture is identified. L3 anterolisthesis by less than 2 mm. Disc spac es otherwise in the vertebral bodies appear appropriate in height. No compression fractures. L1-L2: Mild annular disc bulging. Very mild encroachment upon the ventral thecal sac. No stenosis. L2-L3: Mild osteophytic ridging with a central disc protrusion contacting the ventral thecal sac. Mil d to moderate central stenosis with bilateral subarticular recess and foraminal stenosis due to combi nation of disc and osteophyte and facet disease. Probably not significantly changed since the prior s tudy. L3-L4: Marked annular disc bulging with encroachment upon the ventral thecal sac and subarticular rec esses. Osteophytic ridging and facet arthritis. Moderate to severe central with bilateral subarticula r recess and foraminal stenosis. Mild progression of stenosis since the prior study. L4-L5: Diffuse annular disc bulging with osteophytic ridging. Large posterior laminectomy defect. L5-S1: Osteophytic ridging and annular disc bulging. Large posterior laminectomy defect. Mild atherosclerosis thoracic aorta. Bone grafting site LEFT ilium. CT/CT lumbar spine w con [id number] IMPRESSION: 1. Uncomplicated lumbar monogram. 2. Prior posterior lumbar fusion from L4-S1 with interbody spacers and laminec romeo defects. 3. L3-4: Moderate to severe central with bilateral subarticular recess and for aminal stenosis. Stenosis due to combination of disc, osteophyte and facet arth ritis. Mild progression since 01/22/2018. 4. L2-3: Small central disc protrusion resulting in mild to moderate central s tenosis with bilateral subarticular recess and foraminal stenosis. Similar to t beena prior study.
== END 2023-06-25 09:22 | disposition home or self-care (01) ==
LOC: RAD 09:22
PROVIDERS: PCP Family Medicine; Visit Provider Nurse Practitioner
DX: M48.061 Spinal stenosis, lumbar region without neurogenic claudication (principal); M51.26 Other intervertebral disc displacement, lumbar region
CPT/HCPCS: 62304; 72132; Q9966

== ENCOUNTER → 2023-09-10 07:19 | Outpatient (BNVA) | payer MEDICARE, SELFPAY | PROVIDERS: PCP Family Medicine; Visit Provider Internal Medicine Critical Care Medicine | DX: J45.50 Severe persistent asthma, uncomplicated (principal); I50.30 Unspecified diastolic (congestive) heart failure; I27.20 Pulmonary hypertension, unspecified; J96.91 Respiratory failure, unspecified with hypoxia; J98.4 Other disorders of lung; J98.6 Disorders of diaphragm; J98.11 Atelectasis; E66.2 Morbid (severe) obesity with alveolar hypoventilation; Z68.42 Body mass index [BMI] 45.0-49.9, adult; Z79.52 Long term (current) use of systemic steroids | CPT/HCPCS: 99214 ==

== ENCOUNTER 2023-10-01 07:33 | Outpatient (CLI) | payer MEDICARE, SELFPAY | END 2023-10-01 07:34 | disposition home or self-care (01) | PROVIDERS: PCP Family Medicine; Visit Provider Internal Medicine Critical Care Medicine | DX: I50.30 Unspecified diastolic (congestive) heart failure (principal); I27.20 Pulmonary hypertension, unspecified | CPT/HCPCS: 93306 ==

== ENCOUNTER 2024-05-26 08:24 | Oncology outpatient (recurring) (ONCR) | payer MEDICARE, SELFPAY | END 2024-06-23 23:59 | disposition home or self-care (01) | PROVIDERS: PCP Family Medicine; Visit Provider Internal Medicine | DX: Z53.9 Procedure and treatment not carried out, unspecified reason (principal); D72.829 Elevated white blood cell count, unspecified; D75.1 Secondary polycythemia; E66.2 Morbid (severe) obesity with alveolar hypoventilation; Z68.42 Body mass index [BMI] 45.0-49.9, adult; Z90.81 Acquired absence of spleen | CPT/HCPCS: 99204 ==